=== PATIENT | female | born 1935 | race Caucasian/White ===

== ENCOUNTER 2018-07-03 09:45 | Outpatient (CLI) | payer MEDICARE, OTHER | END 2018-07-03 09:46 | disposition home or self-care (01) | LOC: C.MAMMO 09:45 | DX: N63.0 Unspecified lump in unspecified breast (principal) ==

== ENCOUNTER 2018-07-11 11:20 | Outpatient (CLI) | payer MEDICARE, OTHER | END 2018-07-11 11:21 | disposition home or self-care (01) | LOC: C.SPRAD 11:20 ==